=== PATIENT | female | born 1980 | race Caucasian/White ===

== ENCOUNTER 2018-04-05 21:34 | Emergency (ER) | payer OTHER ==
[2018-04-05] MEDS ORDERED: 0.9 % SODIUM CHLORIDE 1,000 ML BAG IV ONE (21:56)
[2018-04-05 22:03] LABS: URINE APPEARANCE SL CLOUDY; URINE BILIRUBIN NEGATIVE (NEGATIVE); URINE BLOOD SMALL (NEGATIVE); URINE COLOR YELLOW; URINE GLUCOSE (UA) NEGATIVE (NEGATIVE); URINE KETONE NEGATIVE (NEGATIVE); URINE LEUKOCYTE ESTERASE SMALL (NEGATIVE); URINE NITRITE POSITIVE (NEGATIVE)
[2018-04-05 22:10] LABS: URINE BACTERIA 4+; URINE RBC 0 - 2 (NONE SEEN); URINE WBC 21 - 35 (0-2/hpf)
[2018-04-05 22:11] LABS: URINE SPERM MODERATE
--- NOTE | 2018-04-05 22:22 | Emergency Department Record ---
History of Present Illness - General Chief Complaint: Fever Stated Complaint: FEVER, BACK PAIN Time Seen by Provider: 04/05/18 21:51 Source: Patient Mode of Arrival: Ambulatory Limitations: No limitations - History of Present Illness Initial Comments: pt has had a fever, nausea, ap for days. she thinks she might have a kidney infection MD Complaint: Fever Onset/Timin -: Days(s) Associated Symptoms: Abdominal pain, Vomiting Treatments Prior to Arrival: Ibuprofen - Related Data Home Medications Medication Instructions Recorded Confirmed Last Taken Buspirone HCl [Buspar] 30 mg PO BID 04/05/18 04/05/18 04/05/18 Fluoxetine HCl [Prozac] 80 mg PO DAILY 04/05/18 04/05/18 04/05/18 Gabapentin [Neurontin] 600 mg PO TID 04/05/18 04/05/18 04/05/18 Lamotrigine [Lamictal] 200 mg PO DAILY 04/05/18 04/05/18 04/05/18 Ziprasidone HCl [Geodon] 40 mg PO BID 04/05/18 04/05/18 04/05/18 Previous Rx's Medication Instructions Recorded Cephalexin [Keflex] 500 mg PO QID #40 cap 04/05/18 Allergies Allergy/AdvReac Type Severity Reaction Status Date / Time levofloxacin [From Levaquin] Allergy BLISTERS Verified 04/05/18 21:43 midazolam [From Versed] AdvReac BEHAVIORAL Verified 04/05/18 21:43 CHANGES prochlorperazine AdvReac BEHAVIORAL Verified 04/05/18 21:43 [From Compazine] CHANGES Travel Screening - Travel/Exposure Within Last 30 Days Have you traveled within the last 30 days?: No - Travel Symptoms Symptom Screening: None Past Medical History - SOCIAL HISTORY Smoking Status: Current every day smoker Alcohol Use: None Drug Use: None - RESPIRATORY Hx Respiratory Disorders: No - CARDIOVASCULAR Hx Cardio Disorders: Yes Hx Abnormal EKG: Yes (unknown dx, "I didn't follow up") - NEURO Hx Neuro Disorders: Yes - GI Hx GI Disorders: Yes Hx Liver Disease: Yes (hep c) - Hx Genitourinary Disorders: No - ENDOCRINE Hx Endocrine Disorders: No - MUSCULOSKELETAL Hx Musculoskeletal Disorders: No - PSYCH Hx Psych Problems: Yes Hx Anxiety: Yes Hx Depression: Yes Comment:: bipolar - HEMATOLOGY/ONCOLOGY Hx Hematology/Oncology Disorders: No Family Medical History Any Significant Family History?: No Family Hx Comment (NOT TO BE USED IN PLACE OF ITEMS BELOW): denies Course Vital Signs 04/05/18 21:38 Temperature 98.5 F Pulse Rate [ 104 H Pulse Ox Probe] Respiratory 17 Rate Blood Pressure 156/68 [Left Arm] Pulse Ox 99 Medical Decision Making - Lab Data Result diagrams: 04/05/18 22:15 04/05/18 22:15 Lab Results 04/05/18 Range/Units Unknown Urine Color Yellow Urine Appearance Sl cloudy Urine pH 6.0 (5.0-8.0) Ur Specific [place] >= 1.030 (1.002-1.030) Urine Protein 30 mg/dl H (NEGATIVE) Urine Glucose (UA) Negative (NEGATIVE) Urine Ketones Negative (NEGATIVE) Urine Blood Small H (NEGATIVE) Urine Nitrite Positive H (NEGATIVE) Urine Bilirubin Negative (NEGATIVE) Urine Urobilinogen 1.0 (0.20 - 1.00) E.U./dL Ur Leukocyte Esterase Small H (NEGATIVE) Urine RBC 0 - 2 (NONE SEEN) Urine WBC 21 - 35 (0-2/hpf) Ur Epithelial Cells 7 - 10 (FEW) Urine Bacteria 4+ Urine Sperm Moderate Disposition Disposition: Discharge Clinical Impression: Pyelonephritis Disposition: Home, Self-Care Condition: (1) Good Instructions: Fever in Adults (ED), Urinary Tract Infection in Women (ED) Additional Instructions: follow up with family doctor. return sooner if worse. push fluids Prescriptions: Cephalexin [Keflex] 500 mg PO QID #40 cap Forms: Patient Portal Access Quality - Quality Measures Quality Measures: N/A - Blood Pressure Screening Does Patient Have Any of the Following: No Blood Pressure Classification: Hypertensive Reading Systolic Measurement: 128 Diastolic Measurement: 90 Screening for High Blood Pressure: < Pre-Hypertensive BP, F/U Documented > [ G8950] Pre-Hypertensive Follow-up Interventions: Follow-up with rescreen every year.
[2018-04-05 22:31] LABS: BASO % 0.7 % (0-6); EOS % 4.4 % (0-6); GRAN % 38.9 % (47-80); HEMATOCRIT 36.4 % (35.0-47.0); HEMOGLOBIN 12.1 gm/dl (11.6-16.0); LYMPH % 46.6 % (16-45); MEAN CELL VOLUME 90.5 fl (81-97); MEAN CORPUSCULAR HEMOGLOBIN 30.1 pg (27-33); MEAN CORPUSCULAR HGB CONC 33.2 g/dl (32-36); MEAN PLATELET VOLUME 8.8 fl (7.4-10.4); MONO % 9.4 % (0-9); PLATELET COUNT 377 K/uL (130-400); RED BLOOD COUNT 4.02 M/uL (3.80-5.40); RED CELL DISTRIBUTION WIDTH 13.5 % (11.5-14.5); WHITE BLOOD COUNT W/O DIFF 5.5 K/uL (4.2-12.2)
[2018-04-05 22:39] LABS: BLOOD UREA NITROGEN 17 mg/dL (6-20)
[2018-04-05 22:40] LABS: CREATININE 0.7 mg/dL (0.5-0.9); EST GLOMERULAR FILTRATION RATE > 60 mL/min; TOTAL PROTEIN 7.7 g/dL (6.6-8.7)
[2018-04-05 22:42] LABS: GLUCOSE,RANDOM 90 mg/dL (74-109)
[2018-04-05 22:45] LABS: ALBUMIN 5.1 g/dL (4.0-5.0); ALKALINE PHOSPHATASE 59 U/L (35-104); ALT/SGPT 50 U/L (<33); AST/SGOT 56 U/L (10.0-35.0)
[2018-04-05] MEDS ORDERED: CEPHALEXIN 500 MG CAPSULE PO STA (23:00)
[2018-04-05] MEDS ORDERED: KETOROLAC 30 MG/ML VIAL IVP ONE (23:03)
[2018-04-05] MEDS ORDERED: HYDROMORPHONE HCL 2 MG/ML VIAL IVP ONE (23:39)
[2018-04-05] MEDS ORDERED: PROMETHAZINE HCL 12.5 MG in 0.9 % SODIUM CHLORIDE 100ML 100 ML IVPB ONE (23:40)
--- NOTE | 2018-04-08 10:26 | CT SCAN REPORT ---
EXAM: CT OF THE ABDOMEN AND PELVIS WITHOUT CONTRAST HISTORY: LOWER ABDOMINAL PAIN FOR FOUR DAYS. TECHNIQUE: Routine noncontrast CT examination of the abdomen and pelvis was performed without oral or intravenous contrast administration. Lack of oral and IV contrast utilization limits evaluation of the bowel and solid viscera respectively. Comparison: None. FINDINGS: The lung bases are clear and there is no pleural or pericardial effusion. The heart is not enlarged. The liver, spleen, pancreas, adrenal glands, and kidneys are normal in appearance. The gallbladder is unremarkable and no biliary ductal dilatation is seen. No definite intraabdominal nor retroperitoneal lymphadenopathy identified though evaluation evaluation is limited by a paucity of intraabdominal and retroperitoneal fat. No definite pelvic mass, lymphadenopathy, or free pelvic fluid is seen though evaluation is limited by a paucity of intraabdominal and retroperitoneal fat. There are possible follicles within the right ovary. No intrinsic urinary bladder abnormality is seen. No gross bowel dilatation nor bowel wall thickening. There is a large amount of stool within the colon. By history, the appendix is surgically absent. No free intraperitoneal air nor definite free pelvic fluid. No lytic or blastic bone lesion. IMPRESSION: 1. NO DEFINITE CT EVIDENCE OF AN ACUTE INTRAABDOMINAL NOR INTRAPELVIC PROCESS THOUGH EVALUATION IS SOMEWHAT LIMITED BY LACK OF ORAL AND IV CONTRAST UTILIZATION WELL BY A PAUCITY OF INTRAABDOMINAL AND RETROPERITONEAL FAT. 2. STATUS POST APPENDECTOMY. 3. LARGE AMOUNT OF STOOL WITHIN THE COLON. JOB NUMBER: [id number] [facility]
== END 2018-04-06 00:11 | disposition home or self-care (01) ==
LOC: ER 21:34
DX: N10 Acute pyelonephritis (principal); R11.2 Nausea with vomiting, unspecified; R50.81 Fever presenting with conditions classified elsewhere
CPT/HCPCS: 99284 ×2; 96365; 96375; 85025; 80053; 81001; 74176; J1885; J1170; J2550; J7030

== ENCOUNTER 2018-09-26 19:07 | Emergency (ER) | payer MEDICAID ==
[2018-09-26] MEDS ORDERED: 0.9 % SODIUM CHLORIDE 1,000 ML BAG IV ONE (19:28)
[2018-09-26] MEDS ORDERED: KETOROLAC 30 MG/ML VIAL IVP ONE (19:28)
[2018-09-26 19:29] LABS: MEAN CORPUSCULAR HEMOGLOBIN 29.7 pg (27-33); MEAN CORPUSCULAR HGB CONC 33.3 g/dl (32-36); MEAN PLATELET VOLUME 8.8 fl (7.4-10.4); PLATELET COUNT 417 K/uL (130-400); RED BLOOD COUNT 4.38 M/uL (3.80-5.40); RED CELL DISTRIBUTION WIDTH 14.5 % (11.5-14.5); WHITE BLOOD COUNT W/O DIFF 6.7 K/uL (4.2-12.2)
[2018-09-26 19:37] LABS: BLOOD UREA NITROGEN 21 mg/dL (6-20); CREATININE 0.6 mg/dL (0.5-0.9); EST GLOMERULAR FILTRATION RATE > 60 mL/min
[2018-09-26 19:38] LABS: TOTAL PROTEIN 7.9 g/dL (6.6-8.7)
[2018-09-26 19:40] LABS: GLUCOSE,RANDOM 93 mg/dL (74-109)
[2018-09-26 19:43] LABS: ALB/GLOB RATIO 1.6 (1.1-1.8); ALBUMIN 4.9 g/dL (4.0-5.0); ALKALINE PHOSPHATASE 76 U/L (35-104); ALT/SGPT 560 U/L (<33); AST/SGOT 328 U/L (10.0-35.0)
--- NOTE | 2018-09-26 19:49 | Emergency Department Record ---
History of Present Illness - General Chief Complaint: Abdominal Pain Stated Complaint: ABD PAIN Time Seen by Provider: 09/26/18 19:23 Source: Patient Mode of Arrival: Wheelchair Limitations: No limitations - History of Present Illness Initial Comments: pt had a sudden onset of severe llq pain this morning. it has been constant. walking makes it worse. she has never had anything like this before MD Complaint: Abdominal pain Onset/Timin -: Hour(s) Location: Diffuse, LLQ Severity: Moderate, Severe Severity scale (1-10): 10 Quality: Sharp, Stabbing Consistency: Constant Improves With: Nothing Worsens With: Movement Associated Symptoms: Nausea - Related Data LMP (females 10-50): Unknown Patient : No Home Medications Medication Instructions Recorded Confirmed Last Taken Alprazolam [Xanax] 0.5 mg PO TID PRN 09/26/18 09/26/18 Unknown Allergies Allergy/AdvReac Type Severity Reaction Status Date / Time levofloxacin [From Levaquin] Allergy BLISTERS Verified 04/05/18 21:43 midazolam [From Versed] AdvReac BEHAVIORAL Verified 04/05/18 21:43 CHANGES prochlorperazine AdvReac BEHAVIORAL Verified 04/05/18 21:43 [From Compazine] CHANGES Travel Screening - Travel/Exposure Within Last 30 Days Have you traveled within the last 30 days?: No - Travel Symptoms Symptom Screening: None Review of Systems Reviewed: No additional complaints except as noted below Constitutional: Reports: As per HPI. Denies: Chills, Fever, Malaise, Night sweats, Weakness, Weight change Eyes: Reports: As per HPI. Denies: Eye discharge, Eye pain, Photophobia, Vision change ENT: Reports: As per HPI. Denies: Congestion, Dental pain, Ear pain, Epistaxis , Hearing loss, Throat pain Respiratory: Reports: As per HPI. Denies: Cough, Dyspnea, Hemoptysis, Stridor, Wheezes Cardiovascular: Reports: As per HPI. Denies: Arrhythmia, Chest pain, Dyspnea on exertion, Edema, Murmurs, Orthopnea, Palpitations, Paroxysmal nocturnal dyspnea, Rheumatic Fever, Syncope Endocrine: Reports: As per HPI. Denies: Fatigue, Heat or cold intolerance, Polydipsia, Polyuria Gastrointestinal: Reports: As per HPI, Abdominal pain. Denies: Constipation, Diarrhea, Hematemesis, Hematochezia, Melena, Nausea, Vomiting Genitourinary: Reports: As per HPI. Denies: Abnormal menses, Discharge, Dyspareunia, Dysuria, Frequency, Hematuria, Incontinence, Retention, Urgency Musculoskeletal: Reports: As per HPI. Denies: Arthralgia, Back pain, Gout, Joint swelling, Myalgia, Neck pain Skin: Reports: As per HPI. Denies: Bruising, Change in color, Change in hair/ nails, Lesions, Pruritus, Rash Neurological: Reports: As per HPI. Denies: Abnormal gait, Confusion, Headache, Numbness, Paresthesias, Seizure, Tingling, Tremors, Vertigo, Weakness Psychiatric: Reports: As per HPI. Denies: Anxiety, Auditory hallucinations, Depression, Homicidal thoughts, Suicidal thoughts, Visual hallucinations Hematological/Lymphatic: Reports: As per HPI. Denies: Anemia, Blood Clots, Easy bleeding, Easy bruising, Swollen glands Past Medical History - SOCIAL HISTORY Smoking Status: Current every day smoker - RESPIRATORY Hx Respiratory Disorders: No - CARDIOVASCULAR Hx Cardio Disorders: Yes Hx Abnormal EKG: Yes (unknown dx, "I didn't follow up") - NEURO Hx Neuro Disorders: Yes - GI Hx GI Disorders: Yes Hx Liver Disease: Yes (hep c) - Hx Genitourinary Disorders: No - ENDOCRINE Hx Endocrine Disorders: No - MUSCULOSKELETAL Hx Musculoskeletal Disorders: No - PSYCH Hx Psych Problems: Yes Hx Anxiety: Yes Hx Depression: Yes Comment:: bipolar - HEMATOLOGY/ONCOLOGY Hx Hematology/Oncology Disorders: No Family Medical History Any Significant Family History?: Yes Hx Cancer: Mother Hx HTN: Father Physical Exam - General General Appearance: Alert, Oriented x3, Cooperative, Moderate distress - Head Head exam: Normal inspection - Eye Eye exam: Normal appearance, PERRL, EOMI Pupils: Normal accommodation - ENT ENT exam: Normal exam, Mucous membranes moist, Normal external ear exam, Normal orophraynx Ear exam: Normal external inspection. negative: External canal tenderness Nasal Exam: Normal inspection. negative: Discharge, Sinus tenderness Mouth exam: Normal external inspection, Tongue normal Teeth exam: Normal inspection. negative: Dental caries Throat exam: Normal inspection. negative: Tonsillar erythema, Tonsillar exudate - Neck Neck exam: Normal inspection, Full ROM. negative: Tenderness - Respiratory Respiratory exam: Normal lung sounds bilaterally. negative: Respiratory distress - Cardiovascular Cardiovascular Exam: Regular rate, Normal rhythm, Normal heart sounds - GI/Abdominal GI/Abdominal exam: Soft, Normal bowel sounds, Tenderness (llq) - Rectal Rectal exam: Deferred - exam: Deferred - Extremities Extremities exam: Normal inspection, Full ROM, Normal capillary refill. negative: Tenderness - Back Back exam: Reports: Normal inspection, Full ROM. Denies: Muscle spasm, Rash noted, Tenderness - Neurological Neurological exam: Alert, Normal gait, Oriented X3, Reflexes normal - Psychiatric Psychiatric exam: Normal affect, Normal mood - Skin Skin exam: Dry, Intact, Normal color, Warm Course Vital Signs 09/26/18 19:13 Temperature 98.5 F Pulse Rate 88 Respiratory 16 Rate Blood Pressure 107/84 Pulse Ox 100 - Reevaluation(s) Reevaluation #1: 09/26/18 21:30 d/w dr blevins Reevaluation #2: 09/26/18 21:30 ct is neg Medical Decision Making - Lab Data Result diagrams: 09/26/18 19:20 09/26/18 19:20 Lab Results 09/26/18 09/26/18 Range/Units 19:20 19:20 WBC 6.7 (4.2-12.2) K/uL RBC 4.38 (3.80-5.40) M/uL Hgb 13.0 (11.6-16.0) gm/dl Hct 39.0 (35.0-47.0) % MCV 89.0 (81-97) fl MCH 29.7 (27-33) pg MCHC 33.3 (32-36) g/dl RDW 14.5 (11.5-14.5) % Plt Count 417 H (130-400) K/uL MPV 8.8 (7.4-10.4) fl Neutrophils % 26.0 L (47-80) % Band Neutrophils % 0.0 (0-5) % Eosinophils % Not Reportable Basophils % Not Reportable Lymphocytes 60.0 H (16-45) % Monocytes 10.0 H (0-9) % Basophils 0.0 (0-6) % Eosinophil Count 4.0 (0-6) % Sodium 139 (136-145) mmol/L Potassium 4.1 (3.4-4.5) mmol/L Chloride 102 (98-107) mmol/L BUN 21 H (6-20) mg/dL Creatinine 0.6 (0.5-0.9) mg/dL Estimated GFR > 60 mL/min Calcium 9.9 (8.6-10.0) mg/dL Total Bilirubin 0.50 (0.2-1.0) mg/dL Disposition Disposition: Discharge Clinical Impression: Elevated liver enzymes Hepatitis C Qualifiers: Viral hepatitis chronicity: acute Hepatic coma status: without hepatic coma Qualified Code(s): B17.10 - Acute hepatitis C without hepatic coma Disposition: Home, Self-Care Condition: (1) Good Instructions: Hepatitis C (ED) Additional Instructions: follow up with dr blevins next week at his [place] office without fail. return sooner if worse. do not take tylenol. have labs redrawn on sunday. Referrals: DONNA BLEVINS [DOCTOR OF OSTEOPATH] - Forms: Patient Portal Access Quality - Quality Measures Quality Measures: N/A - Blood Pressure Screening Does Patient Have Any of the Following: No Blood Pressure Classification: Pre-Hypertensive BP Reading Systolic Measurement: 107 Diastolic Measurement: 84 Screening for High Blood Pressure: < Pre-Hypertensive BP, F/U Documented > [ G8950] Pre-Hypertensive Follow-up Interventions: Follow-up with rescreen every year.
[2018-09-26] MEDS ORDERED: ONDANSETRON HCL IV 4 MG/2 ML VIAL IVP ONE (20:02)
[2018-09-26] MEDS ORDERED: HYDROMORPHONE HCL 2 MG/ML VIAL IVP ONE (20:02)
[2018-09-26] MEDS ORDERED: LORAZEPAM 2 MG/ML VIAL IV ONE (20:02)
[2018-09-26 20:40] LABS: HCG,QUALITATIVE URINE NEGATIVE (NEGATIVE); URINE APPEARANCE CLEAR; URINE BILIRUBIN NEGATIVE (NEGATIVE); URINE BLOOD NEGATIVE (NEGATIVE); URINE COLOR YELLOW; URINE GLUCOSE (UA) NEGATIVE (NEGATIVE); URINE KETONE NEGATIVE (NEGATIVE); URINE LEUKOCYTE ESTERASE NEGATIVE (NEGATIVE); URINE NITRITE NEGATIVE (NEGATIVE); URINE PROTEIN NEGATIVE (NEGATIVE)
[2018-09-26 21:49] LABS: AMPHETAMINE SCREEN URINE DETECTED; BARBITURATE SCREEN URINE NOT DETECTED; BENZODIAZEPINE SCREEN URINE NOT DETECTED; COCAINE SCREEN URINE NOT DETECTED; METHADONE SCREEN URINE NOT DETECTED; METHAMPHETAMINE SCREEN DETECTED; OPIATE SCREEN URINE NOT DETECTED; OXYCODONE SCREEN URINE DETECTED; PHENCYCLIDINE SCREEN URINE NOT DETECTED; PROPOXYPHENE SCREEN URINE NOT DETECTED; THC SCREEN URINE NOT DETECTED; TRICYCLIC ANTIDEPRESSANT SCRN NOT DETECTED
--- NOTE | 2018-10-01 05:36 | CT SCAN REPORT ---
DATE: 09/26/2018. EXAM: CT OF THE ABDOMEN AND PELVIS WITHOUT CONTRAST. HISTORY: Abdominal pain for two hours. Urinary frequency. TECHNIQUE: Noncontrast CT of the abdomen and pelvis. COMPARISON: CT of the abdomen and pelvis dated 04/05/2018. FINDINGS: Lung bases are clear. Unremarkable noncontrast appearance of the gallbladder, adrenal glands, and spleen. Two tiny low-attenuation lesions in the right hepatic lobe appear stable from prior and likely represent cysts or hemangiomas. Unremarkable appearance of the pancreas. No hydronephrosis. No calculi detected within the kidneys, ureters, or urinary bladder. No focal colonic thickening or inflammatory changes. Metallic clips near the cecum; may correspond with a history of previous appendectomy. Stomach and small bowel are nondilated. No free air or significant free fluid. No mesenteric or retroperitoneal adenopathy detected. Unremarkable noncontrast appearance of the uterus. Abdominal aorta appears nondilated. No acute osseous findings. IMPRESSION: 1. NO ACUTE ABDOMINAL OR PELVIC FINDINGS. 2. STABLE TINY, LOW-ATTENUATION RIGHT HEPATIC LOBE LESIONS; FAVOR CYSTS OR HEMANGIOMAS. Job Number: [id number] MTDD
== END 2018-09-26 21:52 | disposition home or self-care (01) ==
LOC: ER 19:07
DX: B17.10 Acute hepatitis C without hepatic coma (principal); R94.5 Abnormal results of liver function studies; R10.32 Left lower quadrant pain; R11.0 Nausea; R42 Dizziness and giddiness; F17.210 Nicotine dependence, cigarettes, uncomplicated
CPT/HCPCS: 99284 ×2; 96374; 96375; 96361; 83690; 80053; 81003; 81025; 80305; 85027; 74176; J1885; J2405; J1170; J2060; J7030

== ENCOUNTER 2018-09-28 12:20 | Emergency (ER) | payer MEDICAID ==
--- NOTE | 2018-09-28 12:52 | Emergency Department Record ---
History of Present Illness - General Chief Complaint: Abdominal Pain Stated Complaint: ABD PAIN Time Seen by Provider: 09/28/18 12:42 Source: Patient, Family Mode of Arrival: Ambulatory Limitations: No limitations - History of Present Illness Initial Comments: 38 yo female presents with persistent abdominal pain. She was seen on 09/26 with abdominal pain and elevated liver enzymes. She has had known Hep C for 2 years. She does not have a PCP or a GI specialist. She was referred to Dr Palomo for first of the week. She called the office but no appointment was made due to her insurance. She has epigastric pain and nausea. No vomiting. No bruising. No fever. She was asked to return Sunday for a lab recheck but the pain returned. NOTE: Family is not aware of her Hep C status. MD Complaint: Abdominal pain Onset/Timin -: Days(s) Location: Epigastric, LUQ, RUQ Radiation: LUQ, RUQ Migration to: Epigastric, LUQ, RUQ Severity: Moderate Severity scale (1-10): 7 Quality: Burning Consistency: Constant Improves With: Nothing Worsens With: Eating Associated Symptoms: Nausea - Related Data Allergies Allergy/AdvReac Type Severity Reaction Status Date / Time levofloxacin [From Levaquin] Allergy BLISTERS Verified 09/28/18 12:35 midazolam [From Versed] AdvReac BEHAVIORAL Verified 09/28/18 12:35 CHANGES prochlorperazine AdvReac BEHAVIORAL Verified 09/28/18 12:35 [From Compazine] CHANGES Travel Screening - Travel/Exposure Within Last 30 Days Have you traveled within the last 30 days?: No - Travel/Exposure Within Last Year Have you traveled outside the [place] in the last year?: No - Additonal Travel Details Have you been exposed to anyone with a communicable illness?: No - Travel Symptoms Symptom Screening: None Review of Systems Constitutional: Reports: Malaise, Weakness. Denies: Chills, Fever Eyes: Denies: Eye discharge, Eye pain, Photophobia, Vision change ENT: Denies: Congestion, Throat pain Respiratory: Denies: Cough, Dyspnea Cardiovascular: Denies: Chest pain, Palpitations, Syncope Endocrine: Reports: Fatigue Gastrointestinal: Reports: Abdominal pain, Nausea. Denies: Diarrhea, Vomiting Genitourinary: Denies: Dysuria, Urgency Musculoskeletal: Denies: Arthralgia, Back pain, Myalgia Skin: Denies: Bruising, Change in color, Rash Neurological: Denies: Headache Psychiatric: Denies: Anxiety Hematological/Lymphatic: Denies: Easy bleeding, Easy bruising Past Medical History - SOCIAL HISTORY Smoking Status: Former smoker Alcohol Use: None Drug Use: None - RESPIRATORY Hx Respiratory Disorders: No - CARDIOVASCULAR Hx Cardio Disorders: Yes Hx Abnormal EKG: Yes (unknown dx, "I didn't follow up") - NEURO Hx Neuro Disorders: Yes - GI Hx GI Disorders: Yes Hx Liver Disease: Yes (hep c) - Hx Genitourinary Disorders: No - ENDOCRINE Hx Endocrine Disorders: No - MUSCULOSKELETAL Hx Musculoskeletal Disorders: No - PSYCH Hx Psych Problems: Yes Hx Anxiety: Yes Hx Depression: Yes Comment:: bipolar - HEMATOLOGY/ONCOLOGY Hx Hematology/Oncology Disorders: No Family Medical History Any Significant Family History?: Yes Family Hx Comment (NOT TO BE USED IN PLACE OF ITEMS BELOW): denies Hx Cancer: Mother Hx HTN: Father Physical Exam - General General Appearance: Alert, Oriented x3, Cooperative, No acute distress Limitations: No limitations - Head Head exam: Atraumatic, Normal inspection - Eye Eye exam: Normal appearance, PERRL. negative: Conjunctival injection, Scleral icterus - ENT ENT exam: Normal exam Ear exam: Normal external inspection Nasal Exam: Normal inspection Mouth exam: Normal external inspection - Neck Neck exam: Normal inspection, Full ROM. negative: Tenderness - Respiratory Respiratory exam: Normal lung sounds bilaterally. negative: Respiratory distress - Cardiovascular Cardiovascular Exam: Regular rate, Normal rhythm, Normal heart sounds - GI/Abdominal GI/Abdominal exam: Soft, Tenderness (tender ruq, epigastric, and luq). negative : Distended - Rectal Rectal exam: Deferred - exam: Deferred - Extremities Extremities exam: Normal inspection. negative: Tenderness - Back Back exam: Denies: CVA tenderness (R), CVA tenderness (L) - Neurological Neurological exam: Alert, Oriented X3 - Psychiatric Psychiatric exam: Normal affect, Normal mood - Skin Skin exam: Dry, Intact, Normal color, Warm Course Vital Signs 09/28/18 12:21 Temperature 98.1 F Pulse Rate 98 H Respiratory 18 Rate Blood Pressure 99/65 Pulse Ox 97 - Reevaluation(s) Reevaluation #1: 09/28/18 13:30 The CBC was reviewed No acute process The CMP was reviewed. Mild increase in LFT from prior The AST is 385 with prior 328 The ALT is 645 with prior 560 The bilirubin and alk phos are negative The lipase is negative 09/28/18 13:[address] scan from 09/26 was negative for any acute process. 09/28/18 13:50 The patient is feeling greatly improved. We discussed her lab tests. Mild increase. I offered transfer to [facility] for and US. She is feeling better and states she wants to go home and return Sunday for lab recheck as initial planned. I informed her an US could be completed at 7am that day as well. She is to be seen immediately if the pain returns in the meantime. 09/28/18 18:34 I SW Nhan Westbrook [facility]. She will facilitate outpatient follow up Medical Decision Making - Lab Data Result diagrams: 09/28/18 12:00 09/28/18 12:00 Disposition Disposition: Discharge Clinical Impression: Elevated liver enzymes, Hepatitis C Disposition: Home, Self-Care Condition: (1) Good Instructions: Abdominal Pain (ED) Additional Instructions: Call your doctor for the next available follow up appointment Return to the ER for a recheck if worse, any new concerns or questions NO alcohol or Tylenol Return Sunday morning for your lab recheck and ultrasound Call the [facility] Sunday for a new PCP Referrals: JEREL ORTIZ [MEDICAL DOCTOR] - Forms: Patient Portal Access Time of Disposition: 13:55 Quality - Quality Measures Quality Measures: N/A - Blood Pressure Screening Does Patient Have Any of the Following: No Blood Pressure Classification: Normal BP Reading Systolic Measurement: 99 Diastolic Measurement: 65 Screening for High Blood Pressure: < Normal BP, F/U Not Required > [G8783]
[2018-09-28] MEDS ORDERED: MORPHINE SULFATE 10 MG/ML VIAL IVP ONE (12:53)
[2018-09-28] MEDS ORDERED: ONDANSETRON HCL IV 4 MG/2 ML VIAL IVP ONE (12:53)
[2018-09-28] MEDS ORDERED: 0.9 % SODIUM CHLORIDE 1,000 ML BAG IV ONE (12:53)
[2018-09-28 12:54] LABS: BASO % 0.7 % (0-6); EOS % 3.4 % (0-6); GRAN % 49.1 % (47-80); HEMATOCRIT 37.4 % (35.0-47.0); HEMOGLOBIN 12.4 gm/dl (11.6-16.0); MEAN CELL VOLUME 89.3 fl (81-97); MEAN CORPUSCULAR HEMOGLOBIN 29.6 pg (27-33); MEAN CORPUSCULAR HGB CONC 33.2 g/dl (32-36); MEAN PLATELET VOLUME 8.6 fl (7.4-10.4); MONO % 7.8 % (0-9); PLATELET COUNT 351 K/uL (130-400); RED BLOOD COUNT 4.19 M/uL (3.80-5.40); WHITE BLOOD COUNT W/O DIFF 4.1 K/uL (4.2-12.2)
[2018-09-28 13:21] LABS: BLOOD UREA NITROGEN 14 mg/dL (6-20); CREATININE 0.6 mg/dL (0.5-0.9); EST GLOMERULAR FILTRATION RATE > 60 mL/min; GLUCOSE,RANDOM 97 mg/dL (74-109)
[2018-09-28 13:22] LABS: ALB/GLOB RATIO 1.7 (1.1-1.8); ALBUMIN 4.8 g/dL (4.0-5.0); ALKALINE PHOSPHATASE 73 U/L (35-104); ALT/SGPT 645 U/L (<33); AST/SGOT 385 U/L (10.0-35.0); TOTAL PROTEIN 7.7 g/dL (6.6-8.7)
[2018-09-28 13:48] LABS: URINE APPEARANCE SL CLOUDY; URINE BILIRUBIN NEGATIVE (NEGATIVE); URINE BLOOD TRACE-I (NEGATIVE); URINE COLOR YELLOW; URINE GLUCOSE (UA) NEGATIVE (NEGATIVE); URINE KETONE NEGATIVE (NEGATIVE); URINE LEUKOCYTE ESTERASE NEGATIVE (NEGATIVE); URINE NITRITE NEGATIVE (NEGATIVE); URINE PROTEIN NEGATIVE (NEGATIVE); URINE UROBILINOGEN 0.2 E.U./dL (0.20 - 1.00)
[2018-09-28 13:53] LABS: HCG,QUALITATIVE URINE NEGATIVE (NEGATIVE)
[2018-09-28 14:04] LABS: URINE BACTERIA NONE SEEN; URINE EPITHELIAL CELLS 0 - 2 (FEW); URINE RBC NONE SEEN (NONE SEEN); URINE WBC NONE SEEN (0-2/hpf)
== END 2018-09-28 14:15 | disposition home or self-care (01) ==
LOC: ER 12:20
DX: R94.5 Abnormal results of liver function studies (principal); B19.20 Unspecified viral hepatitis C without hepatic coma; R11.0 Nausea; R10.13 Epigastric pain; Z87.891 Personal history of nicotine dependence
CPT/HCPCS: 99284 ×2; 96374; 96375; 83690; 85025; 80053; 81001; 81025; J2405; J2270; J7030

== ENCOUNTER 2018-09-30 07:25 | Emergency (ER) | payer MEDICAID ==
[2018-09-30] MEDS ORDERED: SUCRALFATE 1 G/10 ML UD PO ONE (07:37)
[2018-09-30] MEDS ORDERED: ONDANSETRON 4 MG ODT TABLET SL ONE (07:43)
[2018-09-30 07:47] LABS: BASO % 0.4 % (0-6); EOS % 6.3 % (0-6); GRAN % 39.6 % (47-80); HEMATOCRIT 38.3 % (35.0-47.0); HEMOGLOBIN 12.9 gm/dl (11.6-16.0); LYMPH % 41.7 % (16-45); MEAN CELL VOLUME 89.7 fl (81-97); MEAN CORPUSCULAR HEMOGLOBIN 30.2 pg (27-33); MEAN CORPUSCULAR HGB CONC 33.7 g/dl (32-36); MEAN PLATELET VOLUME 8.7 fl (7.4-10.4); PLATELET COUNT 377 K/uL (130-400); RED BLOOD COUNT 4.27 M/uL (3.80-5.40); RED CELL DISTRIBUTION WIDTH 14.8 % (11.5-14.5); WHITE BLOOD COUNT W/O DIFF 4.8 K/uL (4.2-12.2)
--- NOTE | 2018-09-30 07:50 | Emergency Department Record ---
History of Present Illness - General Chief Complaint: Recheck - Other Stated Complaint: ULTRASOUND Time Seen by Provider: 09/30/18 07:32 Source: Patient Mode of arrival: Ambulatory Limitations: No limitations - History of Present Illness Initial Comments: The patient is here for recheck of LFT's and an abdominal US. She has been having R upper abdomen pain for 4 days with nausea. The patient denies any vomiting, diarrhea, or fever. She has a hx of Hep C and was seen in the ER here on 09/26 and 09/28. On those visits she had elevated LFT's and a normal abdominal CT. The patient was supposed to see a GI doctor in [place] but was unable to due to insurance issues. Now she is here in the ER again for the US and recheck of the lab work. The patient states her condition has not improved but is not worsening. Complaint: Abnormal lab Onset/Timin -: Days(s) Initial Visit For: Other Returns Today for: Other Symptoms Since Prior Visit: No new symptoms Associated Symptoms: Abdominal pain, Nausea - Related Data Previous Rx's Medication Instructions Recorded Omeprazole [Prilosec] 40 mg PO DAILY #28 09/30/18 Allergies Allergy/AdvReac Type Severity Reaction Status Date / Time levofloxacin [From Levaquin] Allergy BLISTERS Verified 09/28/18 12:35 midazolam [From Versed] AdvReac BEHAVIORAL Verified 09/28/18 12:35 CHANGES prochlorperazine AdvReac BEHAVIORAL Verified 09/28/18 12:35 [From Compazine] CHANGES Travel Screening - Travel/Exposure Within Last 30 Days Have you traveled within the last 30 days?: No Review of Systems Constitutional: Denies: Chills, Fever Eyes: Denies: Eye discharge ENT: Denies: Congestion Respiratory: Denies: Cough, Dyspnea Past Medical History - SOCIAL HISTORY Smoking Status: Former smoker - RESPIRATORY Hx Respiratory Disorders: No - CARDIOVASCULAR Hx Cardio Disorders: Yes Hx Abnormal EKG: Yes (unknown dx, "I didn't follow up") - NEURO Hx Neuro Disorders: Yes - GI Hx GI Disorders: Yes Hx Liver Disease: Yes (hep c) - Hx Genitourinary Disorders: No - ENDOCRINE Hx Endocrine Disorders: No - MUSCULOSKELETAL Hx Musculoskeletal Disorders: No - PSYCH Hx Psych Problems: Yes Hx Anxiety: Yes Hx Depression: Yes Comment:: bipolar - HEMATOLOGY/ONCOLOGY Hx Hematology/Oncology Disorders: No Family Medical History Any Significant Family History?: Yes Family Hx Comment (NOT TO BE USED IN PLACE OF ITEMS BELOW): denies Hx Cancer: Mother Hx HTN: Father Physical Exam - General General Appearance: Alert, Oriented x3, No acute distress - Eye Eye exam: Normal appearance - Neck Neck exam: Normal inspection, Full ROM. negative: Tenderness - Respiratory Respiratory exam: Normal lung sounds bilaterally. negative: Respiratory distress - Cardiovascular Cardiovascular Exam: Regular rate, Normal rhythm, Normal heart sounds - GI/Abdominal GI/Abdominal exam: Soft, Tenderness (There is mild RUQ tenderness.). negative: Guarding, Rebound, Rigid - Extremities Extremities exam: Normal inspection, Full ROM, Normal capillary refill. negative: Tenderness - Neurological Neurological exam: Alert, Normal gait. negative: Abnormal gait, Motor sensory deficit - Psychiatric Psychiatric exam: negative: Anxious Course Vital Signs 09/30/18 07:28 Temperature 97.6 F Pulse Rate 86 Respiratory 20 Rate Blood Pressure 117/76 Pulse Ox 100 - Reevaluation(s) Reevaluation #1: The patient's condition has not changed. The US was basically neg for any acute changes. I did discuss the case with Janie ([facility]) who will facilitate an appointment in the family practice clinic this week. I also discuss the case with Dr. Palomo ([facility]) who agrees to have the patient seen in his office tomorrow for further evaluation. I did order a battery of tests for Dr. Palomo and will place the patient on a high dose PPI for home. 09/30/18 09:34 09/30/18 10:14 Medical Decision Making - Data Complexity MDM Data: Labs Ordered and/or Reviewed, X-Ray Ordered and/or Reviewed - Lab Data Result diagrams: 09/30/18 07:43 09/30/18 07:43 - Radiology Data Radiology results: Report reviewed (US: Neg for acute changes. Poss lymph node in pancreas. Rec outpatient pancreas MRI. Patient aware and will F/U.) Disposition Disposition: Discharge Clinical Impression: Elevated liver enzymes Disposition: Home, Self-Care Condition: (2) Stable Instructions: Acute Abdominal Pain (ED) Additional Instructions: Please see the doctor at [facility] tomorrow as planned. Continue your regular medicines and take the Prilosec as directed. Also see Janie ([facility]) next Sunday as planned for follow up and for the possible Pancreas MRI. Please bring all your lab results to the appointment. Prescriptions: Omeprazole [Prilosec] 40 mg PO DAILY #28 cap.dr Forms: Patient Portal Access Time of Disposition: 10:11 Quality - Quality Measures Quality Measures: N/A - Blood Pressure Screening View Details: Yes Does Patient Have Any of the Following: No Blood Pressure Classification: Normal BP Reading Systolic Measurement: 117 Diastolic Measurement: 76 Screening for High Blood Pressure: < Normal BP, F/U Not Required > [G8783]
[2018-09-30 08:00] LABS: INR 1.3; PARTIAL THROMBOPLASTIN TIME 26.8 SECONDS (24.5-39.1); PROTHROMBIN TIME (PATIENT) 12.5 SECONDS (9.5-12.1)
[2018-09-30 08:01] LABS: BLOOD UREA NITROGEN 14 mg/dL (6-20); CREATININE 0.7 mg/dL (0.5-0.9); EST GLOMERULAR FILTRATION RATE > 60 mL/min
[2018-09-30 08:02] LABS: LIPASE 30 U/L (13-60); TOTAL PROTEIN 7.6 g/dL (6.6-8.7)
[2018-09-30 08:04] LABS: GLUCOSE,RANDOM 90 mg/dL (74-109)
[2018-09-30 08:06] LABS: ALBUMIN 4.8 g/dL (4.0-5.0); AST/SGOT 447 U/L (10.0-35.0)
[2018-09-30 08:07] LABS: ALKALINE PHOSPHATASE 83 U/L (35-104)
[2018-09-30 08:19] LABS: ALT/SGPT 822 U/L (<33); BILIRUBIN,DIRECT < 0.2 mg/dL (0-0.3)
[2018-09-30] MEDS ORDERED: MAGNESIUM HYDROXIDE/AL HYDROX 30 ML, LIDOCAINE VISC 2% 15ML 15 ML PO ONE ×2 (08:52)
[2018-09-30 08:56] LABS: AMPHETAMINE SCREEN URINE DETECTED; BARBITURATE SCREEN URINE NOT DETECTED; BENZODIAZEPINE SCREEN URINE NOT DETECTED; COCAINE SCREEN URINE NOT DETECTED; METHADONE SCREEN URINE NOT DETECTED; METHAMPHETAMINE SCREEN DETECTED; OPIATE SCREEN URINE NOT DETECTED; OXYCODONE SCREEN URINE DETECTED; PHENCYCLIDINE SCREEN URINE NOT DETECTED; PROPOXYPHENE SCREEN URINE NOT DETECTED; THC SCREEN URINE NOT DETECTED; TRICYCLIC ANTIDEPRESSANT SCRN NOT DETECTED
[2018-10-03 08:06] LABS: HEPATITIS B SURFACE ANTIBODY 32.74 mIU/mL; HEPATITIS B SURFACE ANTIGEN Nonreactive (Nonreactive)
[2018-10-03 10:08] LABS: HEPATITIS C VIRUS ANTIBODY Reactive (Nonreactive)
== END 2018-09-30 10:20 | disposition home or self-care (01) ==
LOC: ER 07:25
DX: R94.5 Abnormal results of liver function studies (principal); R10.11 Right upper quadrant pain; R11.0 Nausea; Z87.891 Personal history of nicotine dependence
CPT/HCPCS: 76700; 80048; 80076; 80305; 80329; 82728; 83690; 85025; 85610; 85730; 99283; 99284

== ENCOUNTER 2018-10-13 12:44 | Emergency (ER) | payer MEDICAID ==
[2018-10-13] MEDS ORDERED: 0.9 % SODIUM CHLORIDE 1,000 ML BAG IV ONE (13:55)
[2018-10-13] MEDS ORDERED: PROMETHAZINE HCL 25 MG/ML VIAL IV ONE (13:55)
[2018-10-13 14:34] LABS: BASO % 0.8 % (0-6); EOS % 5.8 % (0-6); GRAN % 37.2 % (47-80); HEMATOCRIT 40.1 % (35.0-47.0); LYMPH % 46.7 % (16-45); MEAN CELL VOLUME 91.1 fl (81-97); MEAN CORPUSCULAR HEMOGLOBIN 29.5 pg (27-33); MEAN CORPUSCULAR HGB CONC 32.4 g/dl (32-36); MEAN PLATELET VOLUME 8.9 fl (7.4-10.4); MONO % 9.5 % (0-9); PLATELET COUNT 361 K/uL (130-400); RED CELL DISTRIBUTION WIDTH 14.8 % (11.5-14.5)
[2018-10-13 14:45] LABS: BLOOD UREA NITROGEN 14 mg/dL (6-20); CREATININE 0.7 mg/dL (0.5-0.9); EST GLOMERULAR FILTRATION RATE > 60 mL/min
[2018-10-13 14:46] LABS: LIPASE 30 U/L (13-60); TOTAL PROTEIN 7.9 g/dL (6.6-8.7)
[2018-10-13 14:48] LABS: GLUCOSE,RANDOM 106 mg/dL (74-109)
[2018-10-13 14:51] LABS: ALB/GLOB RATIO 1.6 (1.1-1.8); ALBUMIN 4.9 g/dL (4.0-5.0); ALKALINE PHOSPHATASE 104 U/L (35-104); ALT/SGPT 613 U/L (<33); AST/SGOT 341 U/L (10.0-35.0)
--- NOTE | 2018-10-13 16:21 | Emergency Department Record ---
History of Present Illness - General Chief Complaint: Abdominal Pain Stated Complaint: ABDOMINAL PAIN Time Seen by Provider: 10/13/18 13:40 Source: Patient Mode of Arrival: Ambulatory Limitations: No limitations - History of Present Illness Initial Comments: pt c/o ap. she has been here multiple times for the same. she has hep c and has been having elev liver enzymes for several visits. she was unable to do f/ u as arranged w dr blevins because she had no ride. she was feeling better but then ap returned. she has nausea as well. she admits to using meth once 3 days ago Complaint: Abdominal pain Onset/Timin -: Days(s) Location: Epigastric Radiation: LUQ, RUQ Migration to: No migration Severity: Mild Severity scale (1-10): 6 Quality: Cramping, Dull, Sharp Improves With: Nothing Worsens With: Nothing Associated Symptoms: Nausea, Vomiting - Related Data LMP Date: 10/07/18 LMP (females 10-50): Last week Previous Rx's Medication Instructions Recorded Omeprazole [Prilosec] 40 mg PO DAILY #28 09/30/18 Allergies Allergy/AdvReac Type Severity Reaction Status Date / Time levofloxacin [From Levaquin] Allergy BLISTERS Verified 10/13/18 13:23 midazolam [From Versed] AdvReac BEHAVIORAL Verified 10/13/18 13:23 CHANGES prochlorperazine AdvReac BEHAVIORAL Verified 10/13/18 13:23 [From Compazine] CHANGES Travel Screening - Travel/Exposure Within Last 30 Days Have you traveled within the last 30 days?: No - Travel/Exposure Within Last Year Have you traveled outside the [place] in the last year?: No - Additonal Travel Details Have you been exposed to anyone with a communicable illness?: No - Travel Symptoms Symptom Screening: Stomach Pain Review of Systems Reviewed: No additional complaints except as noted below Constitutional: Reports: As per HPI. Denies: Chills, Fever, Malaise, Night sweats, Weakness, Weight change Eyes: Reports: As per HPI. Denies: Eye discharge, Eye pain, Photophobia, Vision change ENT: Reports: As per HPI. Denies: Congestion, Dental pain, Ear pain, Epistaxis , Hearing loss, Throat pain Respiratory: Reports: As per HPI. Denies: Cough, Dyspnea, Hemoptysis, Stridor, Wheezes Cardiovascular: Reports: As per HPI. Denies: Arrhythmia, Chest pain, Dyspnea on exertion, Edema, Murmurs, Orthopnea, Palpitations, Paroxysmal nocturnal dyspnea, Rheumatic Fever, Syncope Endocrine: Reports: As per HPI. Denies: Fatigue, Heat or cold intolerance, Polydipsia, Polyuria Gastrointestinal: Reports: As per HPI. Denies: Abdominal pain, Constipation, Diarrhea, Hematemesis, Hematochezia, Melena, Nausea, Vomiting Genitourinary: Reports: As per HPI. Denies: Abnormal menses, Discharge, Dyspareunia, Dysuria, Frequency, Hematuria, Incontinence, Retention, Urgency Musculoskeletal: Reports: As per HPI. Denies: Arthralgia, Back pain, Gout, Joint swelling, Myalgia, Neck pain Skin: Reports: As per HPI. Denies: Bruising, Change in color, Change in hair/ nails, Lesions, Pruritus, Rash Neurological: Reports: As per HPI. Denies: Abnormal gait, Confusion, Headache, Numbness, Paresthesias, Seizure, Tingling, Tremors, Vertigo, Weakness Psychiatric: Reports: As per HPI. Denies: Anxiety, Auditory hallucinations, Depression, Homicidal thoughts, Suicidal thoughts, Visual hallucinations Hematological/Lymphatic: Reports: As per HPI. 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 - RESPIRATORY Hx Respiratory Disorders: No - CARDIOVASCULAR Hx Cardio Disorders: Yes Hx Abnormal EKG: Yes (unknown dx, "I didn't follow up") - NEURO Hx Neuro Disorders: Yes - GI Hx GI Disorders: Yes Hx Liver Disease: Yes (hep c) - Hx Genitourinary Disorders: No - ENDOCRINE Hx Endocrine Disorders: No - MUSCULOSKELETAL Hx Musculoskeletal Disorders: No - PSYCH Hx Psych Problems: Yes Hx Anxiety: Yes Hx Depression: Yes Comment:: bipolar - HEMATOLOGY/ONCOLOGY Hx Hematology/Oncology Disorders: No Family Medical History Any Significant Family History?: Yes Hx Cancer: Mother Hx HTN: Father Physical Exam - General General Appearance: Alert, Oriented x3, Cooperative, Mild distress - Head Head exam: Normal inspection - Eye Eye exam: Normal appearance, PERRL, EOMI Pupils: Normal accommodation - ENT ENT exam: Normal exam, Mucous membranes moist, Normal external ear exam, Normal orophraynx Ear exam: Normal external inspection. negative: External canal tenderness Nasal Exam: Normal inspection. negative: Discharge, Sinus tenderness Mouth exam: Normal external inspection, Tongue normal Teeth exam: Normal inspection. negative: Dental caries Throat exam: Normal inspection. negative: Tonsillar erythema, Tonsillar exudate - Neck Neck exam: Normal inspection, Full ROM. negative: Tenderness - Respiratory Respiratory exam: Normal lung sounds bilaterally. negative: Respiratory distress - Cardiovascular Cardiovascular Exam: Normal rhythm, Normal heart sounds, Tachycardia - GI/Abdominal GI/Abdominal exam: Soft, Normal bowel sounds, Tenderness - Rectal Rectal exam: Deferred - exam: Deferred - Extremities Extremities exam: Normal inspection, Full ROM, Normal capillary refill. negative: Tenderness - Back Back exam: Reports: Normal inspection, Full ROM. Denies: Muscle spasm, Rash noted, Tenderness - Neurological Neurological exam: Alert, CN II-XII intact, Normal gait, Oriented X3 - Psychiatric Psychiatric exam: Normal affect, Normal mood - Skin Skin exam: Dry, Intact, Normal color, Warm Course Vital Signs 10/13/18 10/13/18 13:06 15:16 Temperature 97.8 F Pulse Rate 111 H Pulse Rate [ 86 Pulse Ox Probe] Respiratory 18 Rate Blood Pressure 123/82 Blood Pressure 110/68 [Left Arm] Pulse Ox 98 100 - Reevaluation(s) Reevaluation #1: 10/13/18 17:50 pt wants to know when she can go home Medical Decision Making - Lab Data Result diagrams: 10/13/18 14:22 10/13/18 14:22 Lab Results 10/13/18 10/13/18 Range/Units 14:22 14:22 WBC 4.0 L (4.2-12.2) K/uL RBC 4.40 (3.80-5.40) M/uL Hgb 13.0 (11.6-16.0) gm/dl Hct 40.1 (35.0-47.0) % MCV 91.1 (81-97) fl MCH 29.5 (27-33) pg MCHC 32.4 (32-36) g/dl RDW 14.8 H (11.5-14.5) % Plt Count 361 (130-400) K/uL MPV 8.9 (7.4-10.4) fl Gran % 37.2 L (47-80) % Lymphocytes % 46.7 H (16-45) % Monocytes % 9.5 H (0-9) % Eosinophils % 5.8 (0-6) % Basophils % 0.8 (0-6) % Sodium 140 (136-145) mmol/L Potassium 4.0 (3.4-4.5) mmol/L Chloride 101 (98-107) mmol/L Carbon Dioxide 25.0 (22-29) mmol/L Anion Gap 14.0 (7-16) BUN 14 (6-20) mg/dL Creatinine 0.7 (0.5-0.9) mg/dL Estimated GFR > 60 mL/min Random Glucose 106 (74-109) mg/dL Calcium 9.8 (8.6-10.0) mg/dL Total Bilirubin 0.50 (0.2-1.0) mg/dL AST 341 H (10.0-35.0) U/L ALT 613 H (<33) U/L Alkaline Phosphatase 104 (35-104) U/L Total Protein 7.9 (6.6-8.7) g/dL Albumin 4.9 (4.0-5.0) g/dL Globulin 3.0 (1.4-4.8) gm/dL Albumin/Globulin Ratio 1.6 (1.1-1.8) Lipase 30 (13-60) U/L Disposition Disposition: Discharge Clinical Impression: Elevated liver enzymes Hepatitis C Qualifiers: Viral hepatitis chronicity: chronic Hepatic coma status: without hepatic coma Qualified Code(s): B18.2 - Chronic viral hepatitis C Abdominal pain Qualifiers: Abdominal location: generalized Qualified Code(s): R10.84 - Generalized abdominal pain Nausea & vomiting Qualifiers: Vomiting type: unspecified Vomiting Intractability: non-intractable Qualified Code(s): R11.2 - Nausea with vomiting, unspecified Disposition: Home, Self-Care Condition: (1) Good Instructions: Abdominal Pain (ED) Additional Instructions: follow up without fail VICKEY with GI doctor. no tylenol or alcohol. return sooner if worse Referrals: DONNA BLEVINS [DOCTOR OF OSTEOPATH] - [facility] [Provider Group] Forms: Patient Portal Access Quality - Quality Measures Quality Measures: N/A - Blood Pressure Screening Does Patient Have Any of the Following: No Blood Pressure Classification: Pre-Hypertensive BP Reading Systolic Measurement: 123 Diastolic Measurement: 82 Screening for High Blood Pressure: < Pre-Hypertensive BP, F/U Documented > [ [id number]] Pre-Hypertensive Follow-up Interventions: Follow-up with rescreen every year.
[2018-10-13 16:54] LABS: URINE APPEARANCE CLEAR; URINE BILIRUBIN NEGATIVE (NEGATIVE); URINE BLOOD NEGATIVE (NEGATIVE); URINE COLOR YELLOW; URINE GLUCOSE (UA) NEGATIVE (NEGATIVE); URINE KETONE NEGATIVE (NEGATIVE); URINE LEUKOCYTE ESTERASE NEGATIVE (NEGATIVE); URINE NITRITE NEGATIVE (NEGATIVE); URINE PROTEIN NEGATIVE (NEGATIVE)
[2018-10-13] MEDS ORDERED: KETOROLAC 30 MG/ML VIAL IVP ONE (17:30)
[2018-10-13] MEDS ORDERED: ONDANSETRON HCL IV 4 MG/2 ML VIAL IVP ONE (17:39)
== END 2018-10-13 18:15 | disposition home or self-care (01) ==
LOC: ER 12:44
DX: R94.5 Abnormal results of liver function studies (principal); B18.2 Chronic viral hepatitis C; R11.2 Nausea with vomiting, unspecified; R10.84 Generalized abdominal pain; F17.210 Nicotine dependence, cigarettes, uncomplicated
CPT/HCPCS: 80053; 81003; 83690; 85025; 96361; 96374; 96375; 99284; J1885; J2405; J2550; J7030